=== PATIENT | female | born 1955 | race African-American/Black ===

== ENCOUNTER 2021-11-05 03:21 | Observation (INO) ==
--- NOTE | 2021-11-05 03:26 | DR.AMS ---
HPI Time Seen Time Seen by Provider: 11/05/21 03:25 HPI Comment HPI Comment: Cough, congestion and feeling horrible for the past 2-3 days; earlier today, her knees "buckled" and she fell; she was unable to get back up and a family member found her "4-5 minutes later" but daughter says it was longer than that; since, she has been unable to walk; she also had confusion and is seeing frogs and birds in the room with her; no cp, sob, abd pain, n/v/d. PMH PMH Past Surgical History: Yes Social History Do you use any recreational Drugs:: No ROS Review of Systems Eyes: No Symptoms Reported ENTM: No Symptoms Reported Respiratoy: See HPI Cardiovascular: No Symptoms Reported Gastrointestinal/Abdominal: No Symptoms Reported Genitourinary: No Symptoms Reported Neurological: No Symptoms Reported Musculoskeletal: See HPI Integumentary: No Symptoms Reported Hematologic/Lymphatic: No Symptoms Reported Endocrine: No Symptoms Reported Psychiatric: No Symptoms Reported PE Vitals Vital Signs: Temp Pulse Resp BP Pulse Ox O2 Del Method 04/16/15 11:11 178/106 11/05/21 05:30 93 H 26 H 96 11/05/21 05:15 96 H 27 H 96 11/05/21 05:00 96 H 26 H 96 11/05/21 05:00 144/82 11/05/21 04:45 96 H 16 98 11/05/21 04:31 130/84 11/05/21 04:31 96 H 26 H 98 11/05/21 04:30 96 H 29 H 98 11/05/21 04:15 97 H 26 H 99 11/05/21 04:00 97 H 22 95 11/05/21 04:00 157/74 11/05/21 03:50 98 H 27 H 95 11/05/21 03:30 97 H 25 H 95 11/05/21 03:21 100.9 F H 99 H 25 H 151/72 95 Room Air General Limitations: Language Barrier General Appearance: Alert Head Head Exam: Normal Inspection Eyes Eye exam: Normal Appearance ENT ENT Exam: Normal Exam External Ear Exam: Normal External Inspection Nose Exam: Normal Nose Exam Mouth Exam: Normal Inspection Throat Exam: Normal Inspection Neck Neck Exam: Normal Inspection Chest Chest Inspection: Normal Inspection Respiratory Respiratory Exam: Normal Lung Sounds Bilat Cardiovascular Cardiovascular Exam: Regular Rate and Normal Rhythm Abdominal Exam Abdominal Exam: Normal Inspection, Normal Bowel Sounds and Soft Extremities Extremities Exam: Normal Inspection Back Back Exam: Normal Inspection Neurological Neurological Exam: Alert and Oriented X3 Psychological Psychiatric Exam: Normal Affect and Normal Mood Skin Skin Exam: Warm, Dry, Intact and Normal Color ROR Labs Reviewed Result Diagrams: 11/07/21 04:25 11/07/21 04:25 Laboratory: 11/05/21 04:10 Urine,Clean Catch Urine Culture - Final WBC 4.2 X10^3/uL (3.6-10.0) 11/05/21 04:00 RBC 3.90 X10^6/uL (3.5-5.4) 11/05/21 04:00 Hgb 10.7 g/dL (12.0-16.0) L 11/05/21 04:00 Hct 32.5 % (36.0-47.0) L 11/05/21 04:00 MCV 83.5 fL (80.0-100.0) 11/05/21 04:00 MCH 27.6 pg (27.0-34.0) 11/05/21 04:00 MCHC 33.0 g/dL (33.0-35.0) 11/05/21 04:00 RDW 14.7 % (11.6-16.5) 11/05/21 04:00 Plt Count 216 X10^3/uL (150.0-450.0) 11/05/21 04:00 MPV 7.8 fL (7.4-11.0) 11/05/21 04:00 Neut % (Auto) 73.6 % (42.0-75.0) 11/05/21 04:00 Lymph % (Auto) 12.4 % (21.0-51.0) L 11/05/21 04:00 [place] % (Auto) 13.3 % (0.0-13.0) H 11/05/21 04:00 Eos % (Auto) 0.3 % (0.9-2.9) L 11/05/21 04:00 Baso % (Auto) 0.4 % (0.2-1.0) 11/05/21 04:00 Neut # (Auto) 3.1 x10^3/uL (2.2-4.8) 11/05/21 04:00 Lymph # (Auto) 0.5 X10^3/uL (1.3-2.9) L 11/05/21 04:00 [place] # (Auto) 0.6 x10^3/uL (0.3-0.8) 11/05/21 04:00 Eos # (Auto) 0.0 x10^3/uL (0.0-0.2) 11/05/21 04:00 Baso # (Auto) 0.0 X10^3/uL (0.0-0.1) 11/05/21 04:00 Absolute Nucleated RBC 0.0 /100WBC 11/05/21 04:00 Sodium 134 mmol/L (136-145) L 11/05/21 04:00 Corrected Sodium 135 mmol/L (136-145) L 11/05/21 04:00 Potassium 4.1 mmol/L (3.5-5.1) 11/05/21 04:00 Chloride 99 mmol/L (98-107) 11/05/21 04:00 Carbon Dioxide 26.7 mmol/L (21-32) 11/05/21 04:00 BUN 13 mg/dL (7-18) 11/05/21 04:00 Creatinine 1.28 mg/dL (0.55-1.02) H 11/05/21 04:00 Est GFR (MDRD) Af Amer 54 (>60) L 11/05/21 04:00 Est GFR (MDRD) Non-Af 44 (>60) L 11/05/21 04:00 Glucose 135 mg/dL (65-99) H 11/05/21 04:00 Calcium 8.7 mg/dL (8.5-10.1) 11/05/21 04:00 Corrected Calcium 9.5 mg/dL (8.5-10.1) 11/05/21 04:00 Total Bilirubin 0.30 mg/dL (0.2-1.0) 11/05/21 04:00 AST 14 Units/L (15-37) L 11/05/21 04:00 ALT 11 Units/L (12-78) L 11/05/21 04:00 Alkaline Phosphatase 73 Units/L (46-116) 11/05/21 04:00 Creatine Kinase 87 Units/L (26-192) 11/05/21 04:00 Total Protein 7.7 g/dL (6.4-8.2) 11/05/21 04:00 Albumin 3.0 g/dL (3.4-5.0) L 11/05/21 04:00 Globulin 4.7 g/dL (2.5-4.5) H 11/05/21 04:00 Albumin/Globulin Ratio 0.6 Ratio (1.1-2.1) L 11/05/21 04:00 Specimen Type Clean catch urine 11/05/21 04:10 Urine Color Yellow (YELLOW) 11/05/21 04:10 Urine Appearance Clear (CLEAR) 11/05/21 04:10 Urine pH 5.0 (5.0 - 8.0) 11/05/21 04:10 Ur Specific [place] 1.010 (1.000-1.030) 11/05/21 04:10 Urine Protein Negative (NEGATIVE) 11/05/21 04:10 Urine Glucose (UA) Negative (NEGATIVE) 11/05/21 04:10 Urine Ketones Negative (NEGATIVE) 11/05/21 04:10 Urine Blood 3+ (NEGATIVE) 11/05/21 04:10 Urine Nitrite Positive (NEGATIVE) 11/05/21 04:10 Urine Bilirubin Negative (NEGATIVE) 11/05/21 04:10 Urine Urobilinogen Normal (NORMAL) 11/05/21 04:10 Ur Leukocyte Esterase 1+ (NEGATIVE) 11/05/21 04:10 Urine RBC 0-2 /HPF (0-3) 11/05/21 04:10 Urine WBC 3-5 /HPF (0-5) 11/05/21 04:10 Ur Squamous Epith Cells Few /HPF (NEGATIVE) 11/05/21 04:10 Urine Bacteria 1+ /HPF (NEGATIVE) 11/05/21 04:10 Ur Culture Indicated? Yes/culture set up 11/05/21 04:10 SARS CoV-2 RNA Rapid EDUARD Positive (NEGATIVE) A 11/05/21 03:26 Opioid Opioid Risk Tool Total: 0 Total Score Risk Category: Low Risk Copyright: Ramos TEE predicting aberrant behaviors Discharge Plan Diagnosis Discharge Problem: COVID-19, Altered mental status, Unable to ambulate, Cystitis Discharge Plan Patient Disposition: 09 ADMITTED INPATIENT Condition: Stable Orders to Discharge Patient Discharge Orders: Discharge (Routine); Ordered 11/07/21 Ordered By: Lnog Brennan
[2021-11-05 03:34] VITALS: BMI 37.1
[2021-11-05 04:15] LABS: BASOPHILS % (AUTO) 0.4 % (0.2-1.0); EOSINOPHILS % (AUTO) 0.3 % (0.9-2.9); HEMATOCRIT 32.5 % (36.0-47.0); HEMOGLOBIN 10.7 g/dL (12.0-16.0); LYMPHOCYTES # (AUTO) 0.5 X10^3/uL (1.3-2.9); LYMPHOCYTES % (AUTO) 12.4 % (21.0-51.0); MEAN CORPUSCULAR HEMOGLOBIN 27.6 pg (27.0-34.0); MEAN CORPUSCULAR VOLUME 83.5 fL (80.0-100.0); MEAN PLATELET VOLUME 7.8 fL (7.4-11.0); MONOCYTES # (AUTO) 0.6 x10^3/uL (0.3-0.8); MONOCYTES % (AUTO) 13.3 % (0.0-13.0); NEUTROPHILS # (AUTO) 3.1 x10^3/uL (2.2-4.8); NEUTROPHILS % (AUTO) 73.6 % (42.0-75.0); RED CELL DISTRIBUTION WIDTH 14.7 % (11.6-16.5); WHITE BLOOD COUNT 4.2 X10^3/uL (3.6-10.0)
[2021-11-05 04:19] LABS: BILIRUBIN,URINE NEGATIVE (NEGATIVE); BLOOD/HEMOGLOBIN,URINE 3+ (NEGATIVE); GLUCOSE, URINE NEGATIVE (NEGATIVE); KETONES,URINE NEGATIVE (NEGATIVE); LEUKOCYTE ESTERASE ,URINE 1+ (NEGATIVE); NITRITES,URINE POSITIVE (NEGATIVE); PROTEIN,URINE NEGATIVE (NEGATIVE); UROBILINOGEN,URINE NORMAL (NORMAL)
--- NOTE | 2021-11-05 04:20 | CT ---
History: confusion AMS coughing up blood congestion Relevant Clinical InformationExam :BRAIN W/O CONTechnique: Thin section axial ct images of the brain were obtained from the foramen magnum to the vertex without contrast. Sagittal and coronal reconstructions were also performed.Comparison: None isFindings:The ventricles are within normal limits in size. No midline shift, mass effect or extra-axial fluid collections. No evidence of acute hemorrhage or acute macroinfarction. Mild cortical atrophy compatible with patient's age. Decreased attenuation in the periventricular and subcortical white matter consistent with microvascular ischemic white matter changes.The visualized paranasal sinuses and mastoids are unremarkable. The calvarium is intact.Impression:Mild cortical atrophy with microvascular ischemic white matter changes.No acute intracranial pathology.Electronically signed by: Justin Conteh (Nov 05, 2021 04:18:25)
[2021-11-05 04:24] LABS: CALCIUM 8.7 mg/dL (8.5-10.1); CARBON DIOXIDE 26.7 mmol/L (21-32); COR CA(FOR HYPOALB) 9.5 mg/dL (8.5-10.1); CREATININE 1.28 mg/dL (0.55-1.02); TOTAL PROTEIN 7.7 g/dL (6.4-8.2)
[2021-11-05 04:26] LABS: APPEARANCE,URINE CLEAR (CLEAR); COLOR,URINE YELLOW (YELLOW)
[2021-11-05 04:27] LABS: BACTERIA,URINE 1+ /HPF (NEGATIVE); RBC,URINE 0-2 /HPF (0-3); SQUAMOUS EPITHELIAL CELL,UR FEW /HPF (NEGATIVE)
[2021-11-05] MEDS ORDERED: SOLU-Medrol 125 MG VIAL IVP ONE (05:04)
[2021-11-05] MEDS ORDERED: ROCEPHIN 1 GRAM IV PREMIX 1 G/50 ML IV.SOLN. IV ONE (05:04)
[2021-11-05] MEDS ORDERED: NS 1,000 ML IV 1,000 ML ONE (05:11)
[2021-11-05] MEDS ORDERED: ROCEPHIN VIAL 1 GRAM ONE (05:11)
[2021-11-05] MEDS ORDERED: SOLU-Medrol 125 MG VIAL ONE (05:11)
[2021-11-05] MEDS ORDERED: NS 1,000 ML IV 1,000 ML IV ONE (05:31)
[2021-11-05] MEDS ORDERED: TYLENOL 325 MG TAB PO PRN (05:40)
[2021-11-05] MEDS: NS 1,000 ML IV 1,000 ML IV SCH ×2 (07:54→20:52)
[2021-11-05] MEDS ORDERED: REMDESIVIR 200 MG in NS 250 ML IV 250 ML IV ONE (08:04)
--- NOTE | 2021-11-05 08:08 | RAD ---
HISTORYcovid systitis, Ams, unable to ambulate Relevant Clinical InformationSTUDYCHEST, 1 VIEWCOMPARISONnoneFINDINGSCardiomediasti nal silhouette within normal limits. Sequelae of sternotomy and annuloplasty. Lungs underinflated but grossly clear. No sizable pleural effusion or visible pneumothorax. No acute osseous finding.IMPRESSIONNo acute appearing finding.Electronically signed by: Miki Zacarias (Nov 05, 2021 08:06:33)
[2021-11-05] MEDS ORDERED: LASIX PO PRN (08:18)
[2021-11-05] MEDS: LEVAQUIN PREMIX IV 500 MG 500 MG/100 ML BAG IV SCH (08:47)
[2021-11-05] MEDS: PULMICORT NEB TX 0.5 MG NEB SCH ×2 (09:10→21:18)
[2021-11-05] MEDS: DUONEB 0.5 MG/3 MG (3 mL) NEB SCH ×3 (09:10→21:18)
[2021-11-05] MEDS: CYMBALTA PO SCH (09:44)
[2021-11-05] MEDS: K-DUR TAB 20 MEQ PO SCH (09:45)
[2021-11-05] MEDS: GLUCOPHAGE XR 24-HR PO SCH (09:45)
[2021-11-05] MEDS: LOPRESSOR TAB 50 MG PO SCH ×2 (09:45→20:53)
[2021-11-05] MEDS: ZESTRIL TAB 10 MG PO SCH (09:46)
[2021-11-05] MEDS: NovoLIN R (or HumuLIN R) SC PRN ×3 (13:08→20:52)
[2021-11-05] MEDS ORDERED: SOLU-Medrol 40 MG VIAL IVP SCH (14:00)
[2021-11-05] MEDS ORDERED: ROBITUSSIN DM PO PRN (20:53)
[2021-11-05] MEDS: ZOCOR TAB 40 MG PO SCH (20:53)
[2021-11-05] MEDS: NORCO 5/325 MG TAB PO PRN (23:34)
[2021-11-06 05:14] LABS: BASOPHILS % (AUTO) 0.2 % (0.2-1.0); HEMATOCRIT 32.7 % (36.0-47.0); HEMOGLOBIN 10.8 g/dL (12.0-16.0); MEAN CORPUSCULAR HEMOGLOBIN 27.7 pg (27.0-34.0); MEAN CORPUSCULAR HGB CONC 33.1 g/dL (33.0-35.0); MEAN CORPUSCULAR VOLUME 83.7 fL (80.0-100.0); MEAN PLATELET VOLUME 7.9 fL (7.4-11.0); MONOCYTES # (AUTO) 0.6 x10^3/uL (0.3-0.8); NEUTROPHILS # (AUTO) 4.2 x10^3/uL (2.2-4.8); NEUTROPHILS % (AUTO) 72.8 % (42.0-75.0); RED CELL DISTRIBUTION WIDTH 14.8 % (11.6-16.5); WHITE BLOOD COUNT 5.8 X10^3/uL (3.6-10.0)
[2021-11-06 05:26] LABS: ALANINE AMINOTRANSFERASE 11 Units/L (12-78); ALBUMIN 2.8 g/dL (3.4-5.0); ALKALINE PHOSPHATASE 72 Units/L (46-116); ASPARTATE AMINO TRANSFERASE 13 Units/L (15-37); BLOOD UREA NITROGEN 21 mg/dL (7-18); CARBON DIOXIDE 23.6 mmol/L (21-32); CHLORIDE 101 mmol/L (98-107); COR NA(FOR HYPERGLY) 139 mmol/L (136-145); CREATININE 1.15 mg/dL (0.55-1.02); SODIUM 136 mmol/L (136-145); TOTAL PROTEIN 7.6 g/dL (6.4-8.2); eGFR NON BLACK RACES 50 (>60)
[2021-11-06] MEDS: DUONEB 0.5 MG/3 MG (3 mL) NEB SCH ×3 (06:20→20:45)
--- NOTE | 2021-11-06 06:30 | RAD ---
HISTORYSOB, COVID+ Relevant Clinical InformationSTUDYCHEST, 1 [id number]/2022FINDINGSThe trachea is midline. The cardiac silhouette is unremarkable. Median sternotomy wires with prosthetic heart valve. The is the lungs are clear without focal infiltrate or effusion. The bony thorax is unremarkable.IMPRESSIONNo acute cardiopulmonary findings .Electronically signed by: Justin Conteh (Nov 06, 2021 06:29:16)
[2021-11-06] MEDS: K-DUR TAB 20 MEQ PO SCH (08:06)
[2021-11-06] MEDS: CYMBALTA PO SCH (08:06)
[2021-11-06] MEDS: GLUCOPHAGE XR 24-HR PO SCH (08:06)
[2021-11-06] MEDS: LEVAQUIN PREMIX IV 500 MG 500 MG/100 ML BAG IV SCH (08:07)
[2021-11-06] MEDS: LOPRESSOR TAB 50 MG PO SCH ×2 (08:07→20:22)
[2021-11-06] MEDS: ZESTRIL TAB 10 MG PO SCH (08:07)
[2021-11-06] MEDS: XANAX PO PRN ×3 (08:08→20:44)
--- NOTE | 2021-11-06 08:54 | DR.H&P ---
H&P - History & Physical for Day of: H&P Date: 11/05/21 - Chief Complaint Chief Complaint: COUGH, CONGESTION, WEAKNESS - History of Present Illness History of Present Illness: IS A 65 YEAR OLD PATIENT OF OURS. SHE PRESENTED TO THE ER WITH COMPLAINTS OF COUGH, CONGESTION, AND GENERALIZED WEAKNESS FOR THE PAST 2-3 DAYS. FAMILY MEMBERS REPORT THAT PATIENT HAS BEEN CONFUSED. SHE DENIES CHEST PAIN, SHORTNESS OF BREATH, ABDOMINAL PAIN, OR N/V/D. SHE REPORTS THAT SHE HAS COUGHED UP A SMALL AMOUNT OF BLOOD. ADDITIONALLY, FAMILY MEMBERS REPORT THAT PATIENT FELL EARLIER IN THE DAY. SINCE FALLING, SHE HAS HAD SEVERE LEG WEAKNESS AND HAS BEEN UNABLE TO AMBULATE WELL. HER PMH INCLUDES: CHF, HYPERLIPIDEMIA, HTN, CHRONIC PAIN, DM II, ANXIETY, DEPRESSION, HX OF CERVICAL CANCER, HYSTERECTOMY, AND MITRAL VALVE REPAIR. ON ARRIVAL TO THE ER, VITALS WERE: 100.9-99-25-95%-151/72. LABS WERE OBTAINED. WBC 4.2, RBC 3.90, HGB 10.7, HCT 32.5, PLT COUNT 216, D-DIMER 0.90, SODIUM 134, POTASSIUM 4.1, CHLORIDE 99, BUN 13, CREATININE 1.28, GLUCOSE 135, CALCIUM 8.7, AST 14, ALT 11, ALK PHOS 73, TOTAL PROTEIN 7.7, ALBUMIN 3.0, GLOBULIN 4.7, CRP 52.30. CARDIAC ENZYMES WERE WITHIN NORMAL LIMITS. URINALYSIS REVEALED: WBC 3-5, RBC 0-2, LUEKOCYTES 1+, BACTERIA 1+, NITRITES POSITIVE, BLOOD 3+. COVID-19 POSITIVE. URINE CULTURE WAS SET UP. A BRAIN CT WAS OBTAINED AND REVEALED: Mild cortical atrophy with microvascular ischemic white matter changes. No acute intracranial pathology. CHEST XRAY OBTAINED AND REVEALED: Cardiomediastinal silhouette within normal limits. Sequelae of sternotomy and annuloplasty. Lungs underinflated but grossly clear. No sizable pleural effusion or visible pneumothorax. No acute osseous finding. IN THE ER, SHE WAS GIVEN ROCEPHIN 1G IV X 1 AND SOLU-MEDROL 125MG IV X 1. SHE WAS ADMITTED TO THE HOSPITAL FOR FURTHER EVALUATION AND TREATMENT OF COVID-19, ACUTE BRONCHITIS, CYSTITIS, AMS, GENERALIZED WEAKNESS. SHE WAS STARTED ON NORMAL SALINE AT 80 ML/HR, LEVAQUIN 500MG IV DAILY, REMDESIVIR 100MG IV DAILY, DUONEBS TID, PULMICORT NEBS BID, OTBS ACHS, HUMULIN R SLIDING SCALE, ROBITUSSIN DM 10ML PO QID. HER HOME MEDICATIONS OF XANAX, CYMBALTA, LASIX, NORCO, ZESTRIL, GLUCOPHAGE, LOPRESSOR, AND ZOCOR WERE RESUMED. OTHERWISE, WE PLAN TO FOLLOW-UP WITH AM LABS AND CONTINUE TO MONITOR. TIME SPENT ON CLINICAL ASSESSMENT, REVIWING LABS AND IMAGING, DECISION MAKING, AND DOCUMENTATION GREATER THAN 75 MINUTES. - Past Medical History Past Medical History: Anxiety, CHF, Depression, Diabetes, Dyslipidemia, Hypertension - Past Surgical History Surgical History: Hysterectomy - Social History Does patient currently use any type of tobacco product: No Have you used tobacco products in the last 12 months: No Type of Tobacco Use: None Does any household member use tobacco: No Alcohol Use: None Drug Use: None - Medications Home Medications: No Known Drug Allergies Allergy (Verified 11/05/21 03:24) CONTINUE taking the following medications alprazolam 0.5 mg tablet 1 tab PO QID PRN 11/05/21 [History] duloxetine 60 mg capsule,delayed release 1 cap PO QDAY 11/05/21 [History] furosemide 40 mg tablet 1 tab PO QDAY PRN swelling 11/05/21 [History] hydrocodone 10 mg-acetaminophen 325 mg tablet 1 tab PO QID 11/05/21 [History] metoprolol tartrate 50 mg tablet 1 tab PO BID 11/05/21 [History] potassium chloride 20 mEq tablet,extended release(part/cryst) (Klor-Con M) 1 tab PO QDAY 11/05/21 [History] - Review of Systems Constitutional: Weakness Eyes: No Symptoms Reported ENT: No Symptoms Reported Respiratory: See HPI, Cough, Hemoptysis Cardiovascular: Light [place]adedness Gastrointestinal: No Symptoms Reported Genitourinary: No Symptoms Reported Musculoskeletal: No Symptoms Reported Skin: No Symptoms Reported Neurological: Weakness - Physical Exam Vital Signs: Temperature 97.9 F Pulse Rate [Apical] 72 Pulse Rate 71 Respiratory Rate 20 Blood Pressure [Left Arm] 178/84 Blood Pressure 144/82 O2 Sat by Pulse Oximetry 98 Oriented: Normal Eyes: Normal Ear: Normal Nose: Normal Throat: Normal Respiratory: Diminished Throughout Cardiovascular: Normal : Normal Auscultation: Bowel Sounds: Normal Palpation: Normal Tenderness: Normal Skin: Normal Musculoskeletal: Normal Psychiatric: Normal Mood Description: Calm Affect: Normal Speech Pattern: Clear - Assessment/Plan (1) COVID-19 Status: Acute Plan: ADMIT, NORMAL SALINE AT 80 ML/HR, LEVAQUIN 500MG IV DAILY, REMDESIVIR 100MG IV DAILY, DUONEBS TID, PULMICORT NEBS BID, OTBS ACHS, HUMULIN R SLIDING SCALE, ROBITUSSIN DM 10ML PO QID. RESUME HOME MEDS (2) Acute bronchitis Qualifiers: Bronchitis organism: unspecified organism Qualified Code(s): J20.9 - Acute bronchitis, unspecified Status: Acute (3) Cystitis Status: Acute (4) Generalized weakness Status: Acute - Allergies Allergies/Adverse Reactions: Allergies Allergy/AdvReac Type Severity Reaction Status Date / Time No Known Drug Allergies Allergy Verified 11/05/21 03:24
[2021-11-06] MEDS ORDERED: ROCEPHIN VIAL 1 GRAM 1 G in NS 100 ML IV 100 ML IV SCH (09:00)
[2021-11-06] MEDS ORDERED: SOLU-Medrol 125 MG VIAL IVP SCH (09:00)
[2021-11-06] MEDS: REMDESIVIR 100 MG in NS 250 ML IV 250 ML IV SCH (09:09)
[2021-11-06] MEDS: PULMICORT NEB TX 0.5 MG NEB SCH ×2 (09:56→20:45)
[2021-11-06] MEDS: NovoLIN R (or HumuLIN R) SC PRN (11:21)
[2021-11-06] MEDS: NS 1,000 ML IV 1,000 ML IV SCH ×2 (13:04→21:04)
[2021-11-06] MEDS: ROBITUSSIN DM PO SCH ×4 (13:32→20:23)
[2021-11-06] MEDS ORDERED: CATAPRES TAB 0.1 MG PO ONE (15:54)
--- NOTE | 2021-11-06 16:58 | PCM.PROG ---
Progress Note - Progress Note for Day of Date of Exam: 11/06/21 - Subjective Subjective: IS CURRENTLY OBSERVATION STATUS FOR TREATMENT OF COVID-19, ACUTE BRONCHITIS, CYSTITIS, AND GENERALIZED WEAKNESS. TODAY, SHE IS ALERT AND ORIENTED, SITTING UP IN BED ON MORNING ROUNDS. SHE CONTINUE WITH COUGH AND GENERALIZED WEAKNESS TODAY. SHE IS CURRENTLY ON ROOM AIR. SATURATIONS HAVE REMAINED IN THE 90s ON ROOM AIR. ON EXAMINATION, HEART IS REGULAR IN RATE AND RHYTHM. BILATERAL LUNGS ARE NOTED WITH DIMINISHED LUNG SOUNDS THROUGHOUT. ABDOMEN IS ROUND, SOFT, AND NON-TENDER WITH NORMAL BOWEL SOUNDS NOTED IN ALL QUADRANTS. NO UPPER OR LOWER EXTREMITY EDEMA NOTED. HER VITALS THIS MORNING ARE: 97.9-72-20-98%-178/84. LABS WERE OBTAINED. WBC 5.8, RBC 3.90, HGB 10.8, HCT 32.7, PLT COUNT 229, SODIUM 136, POTASSIUM 4.2, CHLORIDE 101, BUN 21, CREATININE 1.15, GLUCOSE 230, CALCIUM 9.0, AST 13, ALT 11, ALK PHOS 72, CRP 61.40, TOTAL PROTEIN 7.6, ALBUMIN 2.8. URINE CULTURE IS PENDING. A CHEST XRAY WAS OBTAINED AND REVEALED: The trachea is midline. The cardiac silhouette is unremarkable. Median sternotomy wires with prosthetic heart valve. The is the lungs are clear without focal infiltrate or effusion. The bony thorax is unremarkable. SHE IS CURRENTLY RECEIVING NORMAL SALINE AT 80 ML/HR, LEVAQUIN 500MG IV DAILY, REMDESIVIR 100MG IV DAILY, DUONEBS TID, PULMICORT NEBS BID, OTBS ACHS, HUMULIN R SLIDING SCALE, ROBITUSSIN DM 10ML PO QID. HER HOME MEDICATIONS OF XANAX, CYMBALTA, LASIX, NORCO, ZESTRIL, GLUCOPHAGE, LOPRESSOR, AND ZOCOR WERE RESUMED. WE WILL CONTINUE WITH CURRENT PLAN OF CARE TODAY. OTHERWISE, WE PLAN TO FOLLOW- UP WITH AM LABS AND CONTINUE TO MONITOR. TIME SPENT ON CLINICAL ASSESSMENT, REVIEWING LABS AND IMAGING, DECISION MAKING, AND DOCUMENTATION GREATER THAN 45 MINUTES. - Past Medical Family Social History Past Med/Fam/Surg Hx: No changes since H&P Allergies: Allergies No Known Drug Allergies Allergy (Verified 11/05/21 03:24) - Review of Systems ROS: No change since H&P - Vital Signs and I&O's Vital Signs: Temperature 98.0 F Pulse Rate [Apical] 68 Pulse Rate 67 Respiratory Rate 20 Blood Pressure [Left Arm] 183/85 Blood Pressure 144/82 O2 Sat by Pulse Oximetry 98 Intake and Output: Intake & Output 11/04/21 11/05/21 11/06/21 11/07/21 11:59 11:59 11:59 11:59 Intake Total 2670 / 2670 3025 / 3025 Balance 2670 / 2670 3025 / 3025 - Physical Exam Oriented: Normal Eyes: Normal Ear: Normal Nose: Normal Throat: Normal Respiratory: Generalized, Diminished Cardiovascular: Normal : Normal Auscultation: Bowel Sounds: Normal Palpation: Normal Tenderness: Normal Skin: Normal Musculoskeletal: Normal Psychiatric: Normal Mood Description: Calm Affect: Normal Speech Pattern: Clear - Laboratory and Diagnostics Result Diagrams: 11/06/21 04:40 11/06/21 04:40 Labs: 11/05/21 04:10 Urine,Clean Catch Urine Culture - Final Laboratory WBC 5.8 X10^3/uL (3.6-10.0) 11/06/21 04:40 RBC 3.90 X10^6/uL (3.5-5.4) 11/06/21 04:40 Hgb 10.8 g/dL (12.0-16.0) L 11/06/21 04:40 Hct 32.7 % (36.0-47.0) L 11/06/21 04:40 MCV 83.7 fL (80.0-100.0) 11/06/21 04:40 MCH 27.7 pg (27.0-34.0) 11/06/21 04:40 MCHC 33.1 g/dL (33.0-35.0) 11/06/21 04:40 RDW 14.8 % (11.6-16.5) 11/06/21 04:40 Plt Count 229 X10^3/uL (150.0-450.0) 11/06/21 04:40 MPV 7.9 fL (7.4-11.0) 11/06/21 04:40 Neut % (Auto) 72.8 % (42.0-75.0) 11/06/21 04:40 Lymph % (Auto) 17.0 % (21.0-51.0) L 11/06/21 04:40 [place] % (Auto) 10.0 % (0.0-13.0) 11/06/21 04:40 Eos % (Auto) 0.0 % (0.9-2.9) L 11/06/21 04:40 Baso % (Auto) 0.2 % (0.2-1.0) 11/06/21 04:40 Neut # (Auto) 4.2 x10^3/uL (2.2-4.8) 11/06/21 04:40 Lymph # (Auto) 1.0 X10^3/uL (1.3-2.9) L 11/06/21 04:40 [place] # (Auto) 0.6 x10^3/uL (0.3-0.8) 11/06/21 04:40 Eos # (Auto) 0.0 x10^3/uL (0.0-0.2) 11/06/21 04:40 Baso # (Auto) 0.0 X10^3/uL (0.0-0.1) 11/06/21 04:40 Absolute Nucleated RBC 0.0 /100WBC 11/06/21 04:40 D-Dimer 0.90 ug/ml (0.0-0.57) H 11/05/21 08:29 Sodium 136 mmol/L (136-145) 11/06/21 04:40 Corrected Sodium 139 mmol/L (136-145) 11/06/21 04:40 Potassium 4.2 mmol/L (3.5-5.1) 11/06/21 04:40 Chloride 101 mmol/L (98-107) 11/06/21 04:40 Carbon Dioxide 23.6 mmol/L (21-32) 11/06/21 04:40 BUN 21 mg/dL (7-18) H 11/06/21 04:40 Creatinine 1.15 mg/dL (0.55-1.02) H 11/06/21 04:40 Est GFR (MDRD) Af Amer > 60 (>60) 11/06/21 04:40 Est GFR (MDRD) Non-Af 50 (>60) L 11/06/21 04:40 Glucose 230 mg/dL (65-99) H 11/06/21 04:40 Calcium 9.0 mg/dL (8.5-10.1) 11/06/21 04:40 Corrected Calcium 10.0 mg/dL (8.5-10.1) 11/06/21 04:40 Total Bilirubin 0.20 mg/dL (0.2-1.0) 11/06/21 04:40 AST 13 Units/L (15-37) L 11/06/21 04:40 ALT 11 Units/L (12-78) L 11/06/21 04:40 Alkaline Phosphatase 72 Units/L (46-116) 11/06/21 04:40 Creatine Kinase 91 Units/L (26-192) 11/05/21 08:29 Troponin I High Sens 7.1 ng/L (4.0-60.0) 11/05/21 08:29 C-Reactive Protein 61.40 mg/L (0-3.0) H 11/06/21 04:40 B-Natriuretic Peptide 54.8 pg/mL (0-79) 11/05/21 08:29 Total Protein 7.6 g/dL (6.4-8.2) 11/06/21 04:40 Albumin 2.8 g/dL (3.4-5.0) L 11/06/21 04:40 Globulin 4.8 g/dL (2.5-4.5) H 11/06/21 04:40 Albumin/Globulin Ratio 0.6 Ratio (1.1-2.1) L 11/06/21 04:40 Specimen Type Clean catch urine 11/05/21 04:10 Urine Color Yellow (YELLOW) 11/05/21 04:10 Urine Appearance Clear (CLEAR) 11/05/21 04:10 Urine pH 5.0 (5.0 - 8.0) 11/05/21 04:10 Ur Specific [place] 1.010 (1.000-1.030) 11/05/21 04:10 Urine Protein Negative (NEGATIVE) 11/05/21 04:10 Urine Glucose (UA) Negative (NEGATIVE) 11/05/21 04:10 Urine Ketones Negative (NEGATIVE) 11/05/21 04:10 Urine Blood 3+ (NEGATIVE) 11/05/21 04:10 Urine Nitrite Positive (NEGATIVE) 11/05/21 04:10 Urine Bilirubin Negative (NEGATIVE) 11/05/21 04:10 Urine Urobilinogen Normal (NORMAL) 11/05/21 04:10 Ur Leukocyte Esterase 1+ (NEGATIVE) 11/05/21 04:10 Urine RBC 0-2 /HPF (0-3) 11/05/21 04:10 Urine WBC 3-5 /HPF (0-5) 11/05/21 04:10 Ur Squamous Epith Cells Few /HPF (NEGATIVE) 11/05/21 04:10 Urine Bacteria 1+ /HPF (NEGATIVE) 11/05/21 04:10 Ur Culture Indicated? Yes/culture set up 11/05/21 04:10 SARS CoV-2 RNA Rapid EDUARD Positive (NEGATIVE) A 11/05/21 03:26 - Plan (1) COVID-19 Status: Acute Plan: NORMAL SALINE AT 80 ML/HR, LEVAQUIN 500MG IV DAILY, REMDESIVIR 100MG IV DAILY, DUONEBS TID, PULMICORT NEBS BID, OTBS ACHS, HUMULIN R SLIDING SCALE, ROBITUSSIN DM 10ML PO QID. RESUME HOME MEDS (2) Acute bronchitis Status: Acute Qualifiers: Bronchitis organism: unspecified organism Qualified Code(s): J20.9 - Acute bronchitis, unspecified (3) Cystitis Status: Acute (4) Generalized weakness Status: Acute (5) Hypertension Status: Chronic Qualifiers: Hypertension type: primary hypertension Qualified Code(s): I10 - Essential (primary) hypertension Plan: CONTINUE HOME MEDS (6) Mixed hyperlipidemia Status: Chronic Plan: CONTINUE HOME MEDS (7) Depression Status: Chronic Qualifiers: Depression Type: major depressive disorder Major depression recurrence: recurrent Active/Remission status: remission status unspecified Qualified Code(s): F33.9 - Major depressive disorder, recurrent, unspecified Plan: CONTINUE HOME MEDS
[2021-11-06] MEDS: NORCO 5/325 MG TAB PO PRN (20:45)
[2021-11-06] MEDS: ZOCOR TAB 40 MG PO SCH (21:03)
[2021-11-07] MEDS: DUONEB 0.5 MG/3 MG (3 mL) NEB SCH (04:55)
[2021-11-07 05:14] LABS: BASOPHILS % (AUTO) 0.5 % (0.2-1.0); EOSINOPHILS % (AUTO) 0.4 % (0.9-2.9); HEMATOCRIT 32.9 % (36.0-47.0); HEMOGLOBIN 10.7 g/dL (12.0-16.0); LYMPHOCYTES # (AUTO) 1.9 X10^3/uL (1.3-2.9); LYMPHOCYTES % (AUTO) 37.4 % (21.0-51.0); MEAN CORPUSCULAR HEMOGLOBIN 27.1 pg (27.0-34.0); MEAN CORPUSCULAR HGB CONC 32.4 g/dL (33.0-35.0); MEAN CORPUSCULAR VOLUME 83.5 fL (80.0-100.0); MEAN PLATELET VOLUME 7.9 fL (7.4-11.0); MONOCYTES # (AUTO) 0.3 x10^3/uL (0.3-0.8); MONOCYTES % (AUTO) 5.2 % (0.0-13.0); NEUTROPHILS # (AUTO) 2.9 x10^3/uL (2.2-4.8); NEUTROPHILS % (AUTO) 56.5 % (42.0-75.0); RED BLOOD COUNT 3.94 X10^6/uL (3.5-5.4); RED CELL DISTRIBUTION WIDTH 14.8 % (11.6-16.5); WHITE BLOOD COUNT 5.1 X10^3/uL (3.6-10.0)
[2021-11-07 05:31] LABS: ALANINE AMINOTRANSFERASE 11 Units/L (12-78); ALBUMIN 2.6 g/dL (3.4-5.0); ALKALINE PHOSPHATASE 59 Units/L (46-116); ASPARTATE AMINO TRANSFERASE 18 Units/L (15-37); BLOOD UREA NITROGEN 13 mg/dL (7-18); CALCIUM 8.4 mg/dL (8.5-10.1); CARBON DIOXIDE 26.3 mmol/L (21-32); CHLORIDE 102 mmol/L (98-107); COR CA(FOR HYPOALB) 9.5 mg/dL (8.5-10.1); COR NA(FOR HYPERGLY) 137 mmol/L (136-145); CREATININE 0.93 mg/dL (0.55-1.02); SODIUM 136 mmol/L (136-145); TOTAL PROTEIN 7.1 g/dL (6.4-8.2); eGFR NON BLACK RACES > 60 (>60)
--- NOTE | 2021-11-07 06:56 | RAD ---
HISTORYCOVID-19 SOBSTUDYPortable AP [id number] ed normal heart size with postsurgical findings and clear lungs. The uppermost manubrial surgical wire is broken but not displaced. The mediastinum and hilar structures and pleural spaces remain normal.IMPRESSIONNo change; no acute findings.Electronically signed by: RADHA BOYER (Nov 07, 2021 06:55:38)
[2021-11-07 08:09] VITALS: BP 157/86
[2021-11-07] MEDS: PULMICORT NEB TX 0.5 MG NEB SCH (08:19)
[2021-11-07] MEDS: CYMBALTA PO SCH (08:21)
[2021-11-07] MEDS: K-DUR TAB 20 MEQ PO SCH (08:21)
[2021-11-07] MEDS: GLUCOPHAGE XR 24-HR PO SCH (08:21)
[2021-11-07] MEDS: ROBITUSSIN DM PO SCH (08:22)
[2021-11-07] MEDS: LEVAQUIN PREMIX IV 500 MG 500 MG/100 ML BAG IV SCH (08:22)
[2021-11-07] MEDS: ZESTRIL TAB 10 MG PO SCH (08:22)
[2021-11-07] MEDS: LOPRESSOR TAB 50 MG PO SCH (08:22)
[2021-11-07] MEDS: XANAX PO PRN (08:23)
[2021-11-07] MEDS: REMDESIVIR 100 MG in NS 250 ML IV 250 ML IV SCH (09:46)
[2021-11-07] MEDS ORDERED: LOVENOX INJ 40 MG SYR SC SCH (11:00)
== END 2021-11-07 12:05 | disposition home or self-care (01) ==
LOC: ER 03:21 → MED/SURG 03:21
PROVIDERS: ADMIT Internal Medicine; ATTEND Internal Medicine
DX: R06.02 Shortness of breath; R41.82 Altered mental status, unspecified; W18.39XA Other fall on same level, initial encounter; N30.00 Acute cystitis without hematuria; J20.8 Acute bronchitis due to other specified organisms; U07.1 COVID-19; R04.2 Hemoptysis; E11.65 Type 2 diabetes mellitus with hyperglycemia; R53.1 Weakness; I10 Essential (primary) hypertension; E78.2 Mixed hyperlipidemia; F33.9 Major depressive disorder, recurrent, unspecified